=== PATIENT | male | born 1995 | race Caucasian/White ===

== ENCOUNTER 2022-02-16 07:49 | Emergency (ER) | payer OTHER ==
[~2022-02-16] VITALS: Ht 180.3 cm; Wt 88.8 kg
[2022-02-16] MEDS ORDERED: ACET-683 PO (08:06)
[2022-02-16] MEDS ORDERED: IBUP200C25 PO (08:06)
[2022-02-16] MEDS ORDERED: VITMTA PO (08:06)
[2022-02-16] MEDS ORDERED: AMOX875T2 PO (09:43)
[2022-02-16 09:49] VITALS: BP 114/70
== END 2022-02-16 09:50 | disposition home or self-care (01) ==
LOC: M ED 07:49
DX: H66.001 Acute suppurative otitis media without spontaneous rupture of ear drum, right ear (principal)